=== PATIENT | female | born 1965 | race African-American/Black ===

== ENCOUNTER 2017-06-30 14:11 | Day surgery (SDC) | payer BC ==
--- NOTE | 2017-06-30 14:52 | Anesthesia Day of Surgery ---
Anesthesia Day of Surgery - Day of Surgery Patient Examined: Yes Patient H&P Reviewed: Yes Patient is NPO: Yes
--- NOTE | 2017-06-30 14:52 | Anesthesia Consultation ---
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
[2017-06-30] MEDS ORDERED: NACL 0.9% 1000 ML 1,000 ML IV SCH (15:00)
[2017-06-30] MEDS ORDERED: PEPCID PO NR (15:00)
[2017-06-30] MEDS ORDERED: VERSED IV NR (15:00)
[2017-06-30] MEDS ORDERED: NACL BACTERIOSTATIC INFILTRATI ONE (15:24)
[2017-06-30] MEDS ORDERED: ANCEF/STERILE WATER 2 GM/20 ML IV NR (17:00)
[2017-06-30] MEDS ORDERED: DIPRIVAN 10 MG/ML IV ONE (17:14)
[2017-06-30] MEDS ORDERED: XYLOCAINE MPF 2% ONE (17:14)
[2017-06-30] MEDS ORDERED: ZOFRAN ONE (17:14)
[2017-06-30] MEDS ORDERED: DILAUDID ONE (17:14)
--- NOTE | 2017-06-30 17:49 | Short Stay Summary ---
Short Stay Documentation Date of service: 06/30/17 - History H&P: obtained from office - Allergies and Medications Current Medications: Allergies ibuprofen Allergy (Verified 06/30/17 15:01) Swelling PT STATES EYES SWELL. Home Medications Medication Instructions Recorded Confirmed Last Taken Type Sulfamethoxazole/Trimethoprim 1 tab PO BID 06/30/17 06/30/17 06/29/17 History [Sulfamethoxazole-Tmp Ds Tablet] Tamsulosin HCl [Tamsulosin HCl] 0.4 mg PO DAILY 06/30/17 06/30/17 06/29/17 History Active Medications Cefazolin Sodium (Ancef/Sterile Water 2 Gm/20 Ml) 2 gm IV PREOP NR Stop: 06/30/17 23:59 Famotidine (Pepcid) 20 mg PO PREOP NR Stop: 06/30/17 23:29 Last Admin: 06/30/17 15:27 Dose: 20 mg Sodium Chloride (Nacl 0.9% 1000 Ml) 1,000 mls @ 42 mls/hr IV DIRECT GREGG Last Admin: 06/30/17 15:30 Dose: 42 mls/hr Midazolam HCl (Versed) 2 mg IV PREOP NR Stop: 06/30/17 23:59 Last Admin: 06/30/17 15:50 Dose: 2 mg - Brief post op/procedure progress note Date of procedure: 06/30/17 Pre-op diagnosis: RT URET STONE 3mm Post-op diagnosis: same Procedure: cysto, rpg, right urs flex and rigid Findings: no ureteral stone Surgeon: ELROY PETER Estimated blood loss: minimal Pathology: none Condition: stable - Hospital course Hospital course: orpacuhome - Disposition Condition at discharge: Good Disposition: DC-01 TO HOME OR SELFCARE Short Stay Discharge Plan Activity: advance as tolerated Diet: advance as tolerated Follow up with: ELROY PETER MD [Staff Physician] - 7 Days
[2017-06-30] MEDS ORDERED: DECADRON ONE (17:55)
[2017-06-30] MEDS ORDERED: ePHEDrine SULFATE ONE (18:13)
[2017-06-30] MEDS ORDERED: WATER FOR IRRIG STERILE IR ONE (18:36)
--- NOTE | 2017-06-30 19:03 | Post Anesthesia Evaluation ---
- Post Anesthesia Evaluation Patient Participated: Yes Airway Patent: Yes Stable Respiratory Function: Yes Nausea/Vomiting: No Temp > 96.8F: Yes Pain Manageable: Yes Adequeate Hydration: Yes Anesthesia Complications: No Block Receding Appropriately: Not Applicable Patient on Ventilator: No
[2017-06-30 19:50] VITALS: BP 99/56
--- NOTE | 2017-07-01 11:38 | Fluoroscopy Report ---
Retrograde pyelogram. History: Right renal stone. The pelvicalyceal systems and ureters appear normal. No filling defects or strictures are seen. Right ureteroscopy was performed. By history, no ureteral stone was identified. A double-J right ureteral stent was placed in satisfactory position at the termination of the procedure.
--- NOTE | 2017-07-01 13:32 | Operative Report ---
PREOPERATIVE DIAGNOSES: Right flank pain, small right ureteral stone 3 mm, right distal ureteral stone and flank pain. POSTOPERATIVE DIAGNOSES: Right flank pain, small right ureteral stone 3 mm, right distal ureteral stone and flank pain. SURGEON: Oneal Yen M.D. ANESTHESIA: General. SPECIMENS: None. ESTIMATED BLOOD LOSS: Minimal. FINDINGS: Mild distal ureteral stenosis passively dilated, no stone. PROCEDURE: Right ureteroscopy, bilateral RPG, and cystoscopy. CLINICAL INDICATIONS: The patient was counseled RCBA, antibiotics, SCDs. The patient ____ treatment, she contacted us in our office and said she was having severe pain ____ add on procedure and to be done MELQUIADES. We scheduled her immediately for this add on procedure. Prior to the procedure, the patient said she was having pain 2 hours before the procedure, but not at the time in the preoperative area. I gave options for continued expectant management versus procedure, wanted to proceed, antibiotics, and SCDs. DESCRIPTION OF PROCEDURE: The patient was transferred to the OR suite in supine position, anesthesia, dorsal lithotomy, prepped and draped in standard fashion. A 22-[place] scope passed, pancystoscopy 30 and 70-degree lens demonstrated no tumors, lesions, or other abnormality. At this point, left UO and cannulated 8 [place] cone-tipped catheter, contrast injected, normal left distal ureter, proximal ureter, renal pelvis and calyces. Right retrograde pyelogram was hard to tell us, given the size of the stone, whether there was a stone within the ureter, but there was a ____ that was just outside the ureter. At this point, the Glidewire was passed, a rigid ureteroscope was passed. We passed this up the ureter. There was an area in the distal ureter that seemed a little bit stenosed, this was passively dilated with the scope. Scope was then passed up to the proximal ureter. A second wire passed, flexible ureteroscope passed then contrast injected and inspected all the upper and lower pole, mid calyces, renal pelvis, no stone identified. Flexible scope slowly withdrawn. No proximal or distal ureteral stone, Glidewire was backloaded on cystoscope. A 6 x 24 double-J stent was passed over the wire under direct and fluoroscopic visualization. When the wire and string was removed, there was nice proximal J, nice distal J within the bladder, bladder drained. The patient awakened and transferred to the PACU in good and stable condition. PLAN: Stage for future removal of stent. JOB# [id number] ATS/NTS
== END 2017-06-30 14:12 | disposition home or self-care (01) ==
LOC: OR 14:11
PROVIDERS: ATTEND Urology
DX: N20.2 Calculus of kidney with calculus of ureter (principal); K75.89 Other specified inflammatory liver diseases; I34.1 Nonrheumatic mitral (valve) prolapse; Z88.6 Allergy status to analgesic agent; Z98.51 Tubal ligation status; Z98.890 Other specified postprocedural states; Z90.49 Acquired absence of other specified parts of digestive tract; Z79.899 Other long term (current) drug therapy
CPT/HCPCS: 52332; 74420; A4217; C1758; C1769; C2617; J0690; J1100; J1170; J2250; J2405; J2704; J7030; Q9967